=== PATIENT | male | born 1950 | race American Indian/Alaskan Native ===

== ENCOUNTER 2019-05-19 12:53 | Outpatient (CLI) | payer MEDICARE ==
--- NOTE | 2019-05-19 15:32 | Cat Scan Report ---
CT ABDOMEN AND PELVIS WITHOUT CONTRAST INDICATION: Other cystitis without hematuria. COMPARISON: No relevant prior imaging study available. TECHNIQUE: Axial, coronal and sagittal CT imaging of the abdomen and pelvis was performed without co ntrast. Lack of intravenous contrast limits evaluation of the vascular and solid organs. All CT sca ns at this location are performed using CT dose reduction for ALARA by means of automated exposure co ntrol. FINDINGS: LOWER CHEST: There is mild bibasilar atelectasis without an additional significant abnormality. LIVER: A cyst are seen throughout the liver measuring up to 3.3 cm along the medial segment of the le ft hepatic lobe. No additional significant abnormalities are noted. BILIARY: No significant abnormality. PANCREAS: No significant abnormality. SPLEEN: No significant abnormality. ADRENALS: No significant abnormality. KIDNEYS AND URETERS: No significant abnormality. GI TRACT: No significant abnormality is seen along the stomach or small bowel. There is generalized c olonic diverticulosis without evidence of diverticulitis. The appendix is unremarkable. PERITONEUM: No free fluid. No free air. No fluid collection. LYMPH NODES: No significant adenopathy. VASCULATURE: The aorta is normal in caliber with mild generalized atherosclerosis. URINARY BLADDER: Stones/other calcifications are seen dependently along the bladder, most notably esme r the right UVJ. There is mild generalized bladder wall thickening with mild infiltration of the osmany vesical fat. No other significant abnormality is noted. REPRODUCTIVE ORGANS: No significant abnormality. ADDITIONAL FINDINGS: None. SKELETAL SYSTEM: No acute abnormality or aggressive appearing osseous lesion is seen. There are mild degenerative changes of the spine. IMPRESSION: 1. Findings consistent with cystitis. 2. No other acute abnormality of the abdomen or pelvis. 3. Additional findings as above. Signer Name: Buddy Hanna MD Signed: 05/19/2019 3:27 PM Workstation Name: [id number]
== END 2019-05-19 12:54 | disposition home or self-care (01) ==
LOC: CT 12:53
PROVIDERS: ATTEND Urology
DX: N30.80 Other cystitis without hematuria (principal)
CPT/HCPCS: 74176

== ENCOUNTER 2020-03-08 09:51 | Day surgery (SDC) | payer MEDICARE ==
[2020-03-08] MEDS ORDERED: LACTATED RINGERS 1,000 ML ONE (10:30)
[2020-03-08] MEDS ORDERED: HYDROmorphone 1 MG/1 ML INJ IV PRN ×2 (11:10)
[2020-03-08] MEDS ORDERED: ONDANSETRON 4 MG/2 ML INJ IV PRN (11:10)
--- NOTE | 2020-03-08 11:11 | Anesthesia Day of Surgery ---
Anesthesia Day of Surgery - Day of Surgery Patient Examined: Yes Patient H&P Reviewed: Yes Patient is NPO: Yes
--- NOTE | 2020-03-08 11:12 | Anesthesia Consultation ---
Anesthesia Consult and Med Hx Date of service: 03/08/20 - Airway Anesthetic Teeth Evaluation: Dentures, Edentulous ROM Head & Neck: Adequate Mental/Hyoid Distance: Adequate Mallampati Class: Class II Intubation Access Assessment: Good - Pre-Operative Health Status ASA Pre-Surgery Classification: ASA2 Proposed Anesthetic Plan: General - Pulmonary Hx Smoking: Yes (STOPPED X 1 WEEK) Hx Asthma: No (+2FS) SOB: No COPD: No Hx Pneumonia: No Hx Sleep Apnea: No (SNORES- HIGH RISK ON CORDELL PRESCREEN) - Cardiovascular System Hx Hypertension: Yes (X 5 YRS) Hx Heart Attack/AMI: No Hx Pacemaker: No Hx Internal Defibrillator: No Hx Heart Murmur: No - Central Nervous System Hx Back Pain: Yes Hx Psychiatric Problems: No - Endocrine Hx End Stage Renal Disease: No Hx Cirrhosis: No Hx Liver Disease: No - Hematic Hx Anemia: No Hx Sickle Cell Disease: No - Other Systems Hx Alcohol Use: No Hx Substance Use: No Hx Cancer: No
[2020-03-08] MEDS ORDERED: ceFAZolin/STERILE WATER 2 GM/20 ML SYRINGE IV NR (12:00)
[2020-03-08] MEDS ORDERED: MIDAZOLAM 2 MG/2 ML INJ IV NR (12:00)
[2020-03-08] MEDS ORDERED: LACTATED RINGERS 1,000 ML IV SCH (12:00)
[2020-03-08] MEDS ORDERED: ONDANSETRON 4 MG/2 ML INJ ONE (12:29)
[2020-03-08] MEDS ORDERED: fentaNYL 100 MCG/2 ML INJ ONE (12:29)
[2020-03-08] MEDS ORDERED: propofoL 200 MG/20 ML VIAL IV ONE (12:29)
[2020-03-08] MEDS ORDERED: dexAMETHasone 20 MG/5 ML VIAL ONE (12:29)
[2020-03-08] MEDS ORDERED: LIDOCAINE MPF (2%) 20 MG/1 ML VIAL 5 ML ONE (12:29)
[2020-03-08] MEDS ORDERED: GLYCOPYRROLATE 0.4 MG/2 ML INJ ONE (12:29)
[2020-03-08] MEDS ORDERED: SUCCINYLCHOLINE CHLORIDE 200 MG/10 ML INJ MDV ONE (12:29)
[2020-03-08] MEDS ORDERED: PHENYLEPHRINE/NS 1,000 MCG/10 ML SYRINGE (OR USE) IV ONE (12:29)
[2020-03-08] MEDS ORDERED: ePHEDrine SULFATE 50 MG/1 ML INJ ONE (12:42)
[2020-03-08] MEDS ORDERED: WATER FOR IRRIG STERILE 2000 ML IR ONE (13:00)
--- NOTE | 2020-03-08 13:59 | Post Operative Note ---
Date of procedure: 03/08/20 Pre-op diagnosis: stricture Post-op diagnosis: same Findings: 2 cm Procedure: cysto rpg dviu Anesthesia: GETA Surgeon: SIGRID MALDONADO Estimated blood loss: none Pathology: list (urine) Specimen disposition: to lab Condition: stable Disposition: PACU
--- NOTE | 2020-03-08 14:00 | Discharge Summary ---
Short Stay Discharge Plan Activity: other (no straining ) Weight Bearing Status: Full Weight Bearing Diet: low fat, low cholesterol, low salt Special Instructions: other (teach foleyn care ) Durable Medical Equipment Needed Upon Discharge: other (alvarez) Follow up with: PRIMARY CARE,MD [Primary Care Provider] - 7 Days SIGRID MALDONADO MD [Staff Physician] - 7 Days
--- NOTE | 2020-03-08 14:33 | Post Anesthesia Evaluation ---
- Post Anesthesia Evaluation Patient Participated: Yes Airway Patent: Yes Stable Respiratory Function: Yes Nausea/Vomiting: No Temp > 96.8F: Yes Pain Manageable: Yes Adequeate Hydration: Yes Anesthesia Complications: No Block Receding Appropriately: Not Applicable Patient on Ventilator: No
[2020-03-08 15:16] VITALS: BP 143/97
--- NOTE | 2020-03-08 15:18 | Operative Report ---
PREOPERATIVE DIAGNOSES: Severe urethral stricture, hematuria. POSTOPERATIVE DIAGNOSES: Severe urethral stricture, hematuria. PROCEDURE: Cystoscopy, direct vision internal urethrotomy retrograde. SURGEON: Milton Banegas MD ANESTHESIA: General. FINDINGS: This is a gentleman with dark urine. He has a stricture. He now presents for treatment. DESCRIPTION OF PROCEDURE: The patient was brought to the operating room, placed on the operating table. Following induction of anesthesia, placed in lithotomy position, prepped and draped in usual sterile fashion. A stricture was noted. A wire coiled in the bladder under fluoroscopic guidance. Direct vision internal urethrotomy was carried out without difficulty. This was wide open. The prostate was also quite big with a very elevated bladder neck. The wire ____ the bladder, we followed that into the bladder. Bladder urine was quite concentrated. Retrograde showed good filling and good drainage. The patient tolerated the procedure well. The bladder was pushed up from subtrigonal prostate. There was J hooking. The patient tolerated the procedure well. A Councill catheter was left. There were no lesions in the bladder. Bladder was well visualized with both lenses, was brought to recovery in stable condition. JOB# [id number] BANG/JOSE
--- NOTE | 2020-03-08 16:53 | Fluoroscopy Report ---
INTRAOPERATIVE FLUOROSCOPY INDICATION / CLINICAL INFORMATION: OTHER CYSTITIS, W/O HEMATURIA. TECHNIQUE: Intraoperative spot images were obtained during the procedure. FINDINGS: Intraoperative fluoroscopy images for retrograde urography. See operative/procedure note by performing physician for full details. Fluoroscopy Time: 29 seconds. Fluoroscopy Images: 10. Signer Name: Carlos Enrique Kemp MD Signed: 03/08/2020 4:48 PM Workstation Name: [id number]
== END 2020-03-08 15:10 | disposition home or self-care (01) ==
LOC: OR 09:51
PROVIDERS: ATTEND Urology
DX: N35.819 Other urethral stricture, male, unspecified site (principal); N30.81 Other cystitis with hematuria; Z20.828 Contact with and (suspected) exposure to other viral communicable diseases; Z87.891 Personal history of nicotine dependence; Z79.899 Other long term (current) drug therapy; I10 Essential (primary) hypertension; Z87.440 Personal history of urinary (tract) infections; M19.90 Unspecified osteoarthritis, unspecified site
CPT/HCPCS: 52276; 74420; 87086; 88112; A4217; C1769; J0330; J0690; J1100; J2250; J2370; J2405; J2704; J3010; J7120; Q9967; U0003